=== PATIENT | female | born 1980 | race Caucasian/White ===

== ENCOUNTER 2023-05-09 12:42 | Outpatient (AMB) | payer OTHER, SELFPAY ==
--- NOTE | 2023-05-09 12:44 | AM.OFFWIN_ITS ---
Intake Vital Signs 05/09/23 12:48 BP 120/80 Blood Pressure Location Rt brachial Position Sitting Pulse 74 Pulse Source Pulse Oximeter Pulse Oximetry (%) 99 Oxygen Delivery Method Room Air Intake Visit Reasons: EP; both hands numb Intake Note: Patient here for wrist pain that has radiated to elbows and hands are numb/burning sensation for a while now. Patient Tobacco Use Status: Former Tobacco user Allergies sulfamethoxazole [From Bactrim] Allergy (Severe, Verified 05/09/23 12:47) Hives trimethoprim [From Bactrim] Allergy (Severe, Verified 05/09/23 12:47) Hives Sulfa (Sulfonamide Antibiotics) Allergy (Unknown, Verified 05/09/23 12:47) unsure Do you need a note to return to daycare/school/sports/work: No HPI HPI Comments History of Present Illness Details 42-year-old female who presents for bilateral numbness and tingling of her hands. Patient states that for off and on for several months now she has been experiencing occasional bilateral tingling in wood sensations of her hands bilaterally that is productive the elbows. Pain initially if 1st seemed worse with usage in she believed is an overuse injury but now she has occasional episodes of pain in the past. She has tried splinting as well as NSAIDs which helps occasionally. The pain is described as a burning sensation. She denies any acute weakness but has broken several glasses. Denies any headaches vision changes bladder or bowel symptoms fever chest pain shortness of breath new rashes but does have exposure to ticks. [facility] Family History (Reviewed 11/03/22 @ 11:40 by Charanjit Nava, [facility]) Maternal Aunt Substance use disorder Mental health disorder Paternal Uncle Mental health disorder Maternal Uncle Substance use disorder Mental health disorder Sister Substance use disorder Mental health disorder Brother Substance use disorder Mental health disorder Paternal Aunt Substance use disorder Mental health disorder Maternal Grandmother Mental health disorder Mother Mental health disorder Social History Housing: House Patient Tobacco Use Status: Former Tobacco user Years Smoked: quit 16 years ago e-Cigarette/Vaping Use: Never Used Second Hand Smoke Exposure: No service: No Current occupational status: unemployed Cognitive needs: No Hearing needs: No Vision needs: No Review of Systems Const All systems reviewed & are unremarkable except as noted in HPI and below Denies fever(s), Denies headache(s) and Denies weakness Eyes Reports no additional complaints ENT Reports no additional complaints and Denies headache(s) Card Reports no additional complaints, Denies chest pain, Denies leg edema and Denies dyspnea Resp Denies cough and Denies dyspnea GI Denies abdominal pain, Denies nausea and Denies vomiting Denies urinary frequency and Denies dysuria Musc Reports no additional complaints and Reports numbness Neuro Denies headache(s), Reports numbness, Reports paresthesias and Denies weakness Psych Reports no additional complaints Endo Reports no additional complaints Physical Exam Vital Signs: Last Vital Signs Pulse 74 05/09/23 12:48 BP 120/80 05/09/23 12:48 Pulse Ox 99 05/09/23 12:48 Oxygen Delivery Method Room Air 05/09/23 12:48 Const General: cooperative, no acute distress and alert Orientation/consciousness: patient oriented x3 Limitations: no limitations HEENT Head: Yes normal to inspection Ears: hearing grossly normal bilaterally and external ears normal General nose exam: Normal external nose present Eyes General: appearance normal, both eyes and all related structures Neck Neck: Yes normal visual inspection Chest Chest palpation & inspection: normal inspection of the chest Resp Effort & Inspection: normal respiratory effort, able to speak in complete sentences and no audible wheezes Auscultation: clear to auscultation bilaterally Cardio Rate: regular rate Rhythm: regular rhythm GI Inspection: Yes normal to inspection Palpation (GI): Soft to palpation and nontender Skin General skin exam: no rashes or lesions noted Neuro Other: NEURO PHYSCIAL EXAM Alert and oriented to person, place, time speech: clear, fluent CN II: visual acuity grossly intact b/l, PERRLA CN III, IV, : EOMI CN V: facial sensation grossly intact to light touch b/l CN VII: symmetric facial movement b/l, no facial droop CN VIII: hearing intact to finger rub b/l, no nystagmus CN IX, X: uvula midline CN XI: 5/5 strength with SCM and trapezius b/l CN XII: midline tongue protrusion, no atrophy or fasciculations motor: 5/5 muscle strength of UE/LE b/l, no pronator drift sensory: grossly intact b/l to light touch coordination: No dysmetria or dysdiadochokinesia with rapid alternating movement and finger to nose testing reflexes: General: patient oriented x3 Psych Appearance: grossly normal Mental Status: mental status grossly normal Speech and movement: Normal speech and movement present Affect: normal affect Attitude: cooperative Thought process: Normal thought process present Thought content: Normal thought content present Assessment & Plan Assessment & Plan (1) Neuropathy: Code(s): G62.9 - Polyneuropathy, unspecified Plan 42-year-old female who presents for bilateral numbness and tingling of her hands. VSS. Exam patient was informed oriented no acute distress exam is otherwise unremarkable note above. Neuro exam grossly intact. Given patient's presentation symptoms of consideration is overuse injury versus radiculopathy secondary to patient's history of cervical spinal issues versus new onset polyneuropathy versus Lyme. At this time given chronic nature would recommend patient follow-up with Neurology outpatient will place referral. In addition will trial for day course of steroids if symptoms are not secondary to radiculopathy inflammation. Will send patient for lab studies. Will offer s trict return precautions. Discharge instructions, follow up and treatment are discussed with patient in my usual fashion. Alternatives in treatment are also discussed. The patient will return for worsening symptoms or as needed. Advised that any labs/imaging ordered will be followed up on and contact made if further treatment needed. Counseled that patient's condition may require further evaluation and/or treatment. Symptoms of concern for worsening disorder discussed in detail in my customary manner. Patient does verbalize understanding of the plan, there are no apparent barriers to communication. The patient is given the opportunity to ask questions and have them answered to his/her satisfaction Orders: Orders Lyme IgG/IgM w/reflex to WB Today G62.9 - Polyneuropathy, unspecified Referrals Neurology Referral G62.9 - Polyneuropathy, unspecified Medications: New prednisone 40 mg (2 x 20 mg) PO DAILY 4 days 8 tabs 0RF Patient Instructions: Your seen evaluated in urgent care for your hand numbness and tingling of her hands. At this time unclear include cause of your symptoms. You have prescribe short course of steroids to treat inflammation. Recommend Tylenol NSAIDs rest in splinting at night. In addition a referral to Neurology has been made. Lyme studies were ordered please proceed to the lab. If experiencing no worsening symptoms such as fever, new rashes, swelling of the joints, weakness, lower extremity symptoms, vision changes or headaches please present to the emergency department or return to our clinic. Coding Level of Care Code Est Pt Level 3 (80432) Diagnoses Neuropathy G62.9
[2023-05-09 12:48] VITALS: BP 120/80; PULSE 74; O2SAT 99
== END 2023-05-09 13:26 | disposition home or self-care (01) ==
PROVIDERS: PCP Nurse Practitioner Family; Visit Provider Physician Assistant
DX: G62.9 Polyneuropathy, unspecified (principal)
CPT/HCPCS: 99213

== ENCOUNTER 2023-05-09 13:27 | Outpatient (REF) | payer OTHER, SELFPAY ==
[2023-05-09 16:19] LABS: MANUAL DIFF FLAG NO
[2023-05-09 16:32] LABS: Basophils Absolute Auto 0.1 X10*3/uL (0.0-0.2); Basophils Percent Auto 0.8 % (0-2); Eosinophils Absolute Auto 0.1 X10*3/uL (0.0-0.4); Hematocrit 38.4 % (37.0-47.0); Hemoglobin 12.5 g/dl (12.0-16.0); Imm Gran Abs Auto 0.02 X10*3/uL (0.00-0.03); Imm Gran Pct Auto 0.3 % (0.0-0.4); Lymphocytes Absolute Auto 1.8 X10*3/uL (1.2-4.9); Lymphocytes Percent Auto 30.6 % (20-40); Mean Corpuscular HGB Conc 32.6 g/dl (31.0-35.0); Mean Corpuscular Hemoglobin 28.1 pg (27.0-33.0); Mean Corpuscular Volume 86.3 fL (80.0-98.0); Mean Platelet Volume 11.5 fL (9.4-12.3); Monocytes Absolute Auto 0.3 X10*3/uL (0.1-1.2); Monocytes Percent Auto 5.7 % (2-11); Neutrophils Absolute Auto 3.6 x10*3/uL (2.0-8.3); Neutrophils Percent Auto 61.6 % (45-73); Platelet Count 268 X10*3/uL (160-400); Red Blood Count 4.45 X10*6/uL (4.20-5.50); Red Cell Distribution Width 12.9 % (11.0-16.0); White Blood Count 5.9 X10*3/uL (4.8-10.8)
[2023-05-09 16:33] LABS: Appearance Urine Clear; Color Urine Yellow; Glucose Urine UA Negative (Negative); Leukocyte Esterase Urine Negative (Negative); Nitrite Urine Negative (Negative); Specific Gravity - Urine 1.015 (1.005-1.025); Urine Blood Negative (Negative); Urine Ketones Negative (Negative); Urine Protein Negative (Neg-Trace)
[2023-05-09 16:58] LABS: Alanine Aminotransferase 18 U/L (0-31); Albumin Level 4.6 g/dL (3.5-5.0); Alkaline Phosphatase 51 U/L (39-117); Anion Gap 14 (12-20); Aspartate Amino Transferase 19 U/L (5-31); Bilirubin Total 0.5 mg/dL (0.0-1.0); Blood Urea Nitrogen 12 mg/dL (9-16); Calcium 10.4 mg/dL (8.4-10.2); Carbon Dioxide 25 mmol/L (22-29); Chloride 107 mmol/L (96-108); Cholesterol 173 mg/dL; Estimated Glomerular Filt Rate > 60; Glucose Fasting 92 mg/dL (60-99); HDL Cholesterol 65 mg/dL; LDL Cholesterol Calculated 90 mg/dl; Potassium 3.7 mmol/L (3.3-5.1); Sodium 142 mmol/L (135-145); Total Protein 7.3 g/dL (6.5-8.0); Triglycerides 93 mg/dL
[2023-05-09 17:03] LABS: TSH reflex Free T4 1.02 uIU/mL (0.32-4.0)
[2023-05-12 22:04] LABS: Lyme Abs Screen <0.90 index
== END 2023-05-09 13:28 | disposition home or self-care (01) ==
LOC: HO.HMGCLDS 13:27
PROVIDERS: Absent Provider Physician Assistant; PCP Nurse Practitioner Family; Visit Provider Nurse Practitioner Family
DX: Z00.00 Encounter for general adult medical examination without abnormal findings (principal); G62.9 Polyneuropathy, unspecified
CPT/HCPCS: 36415; 80053; 80061; 81003; 84443; 85025; 86617; 86618

== ENCOUNTER 2023-05-15 11:09 | Outpatient (REF) | payer OTHER, SELFPAY ==
[2023-05-15 15:11] LABS: Vitamin D 25-OH Total 42.1 ng/mL (>30)
[2023-05-17 23:33] LABS: PTHI 56 pg/mL (16-77)
[2023-05-20 12:48] LABS: Calcium, Ionized 5.2 mg/dL (4.7-5.5)
== END 2023-05-15 11:10 | disposition home or self-care (01) ==
LOC: HO.HMGCLDS 11:09
PROVIDERS: PCP Nurse Practitioner Family; Visit Provider Nurse Practitioner Family
DX: E83.52 Hypercalcemia (principal)
CPT/HCPCS: 36415; 82306; 82330; 83970

== ENCOUNTER 2023-06-15 13:16 | Outpatient (AMB) | payer OTHER, SELFPAY ==
--- NOTE | 2023-06-15 13:18 | A.OFFPC_ITS ---
Vital Signs 06/15/23 13:19 Height 5 ft 2 in Weight 108 lb 8 oz BMI 19.8 BP 102/70 Blood Pressure Location Rt brachial Position Sitting Pulse 86 Pulse Source Pulse Oximeter Pulse Oximetry (%) 99 Oxygen Delivery Method Room Air Intake Visit Reasons: Bilateral Arm numbness/tingling Intake Note: pt says this started about 5-6 months ago pt says it has been consistent but did calm down some with ibuprofen ad Tylenol Allergies sulfamethoxazole [From Bactrim] Allergy (Severe, Verified 06/15/23 17:31) Hives trimethoprim [From Bactrim] Allergy (Severe, Verified 06/15/23 17:31) Hives Sulfa (Sulfonamide Antibiotics) Allergy (Unknown, Verified 06/15/23 17:31) unsure Medication List - Last Reconciled 06/15/23 by LUISITO Ellison prednisone 40 mg (2 x 20 mg) PO DAILY 7 days Tobacco use date assessed: 06/15/23 Dental Screening Dental Screen Date: 06/15/23 Did you have a dental visit in the last 12 months?: Yes Did you have a dental problem in the last 6 months where you did not have access to dental care?: No Was dental information given to patient?: Patient has dentist HPI Bilateral Arm numbness/tingling HPI Details Pt c/o bilat hand numbness and tingling. She reports noticing this when using her hands a lot. Pt was seen in the walk-in for this on 05/09 and was given prednisone. She was also tested for lyme which was negative. Pt was referred to neurology and has an appointment in October. She reports some cervical neck pain with radicular symptoms down her upper extremities. Will order cervical spine xr. Will also order EMG/nerve conduction testing and send prednisone. Recommended wrist braces at night. Denies fever, chills, and dizziness. [facility] Family History Maternal Aunt Substance use disorder Mental health disorder Paternal Uncle Mental health disorder Maternal Uncle Substance use disorder Mental health disorder Sister Substance use disorder Mental health disorder Brother Substance use disorder Mental health disorder Paternal Aunt Substance use disorder Mental health disorder Maternal Grandmother Mental health disorder Mother Mental health disorder Social History Housing: House Patient Tobacco Use Status: Former Tobacco user Years Smoked: quit 16 years ago e-Cigarette/Vaping Use: Never Used Second Hand Smoke Exposure: No service: No Current occupational status: unemployed Cognitive needs: No Hearing needs: No Vision needs: No Questionnaire Thrive Questionnaire Date Thrive assessed: 11/03/22 FERNANDO-7 AMB Questionnaire FERNANDO-7 Date FERNANDO - 7 assessed: 11/03/22 Source: Developed by Drs. Ajay Bran, Josette Nayak, Umberto Martell and colleagues, with an educational iman from [employer]. Review of Systems Const Reports as per HPI Physical exam (Primary Care) Vital Signs: Last Vital Signs Pulse 86 06/15/23 13:19 BP 102/70 06/15/23 13:19 Pulse Ox 99 06/15/23 13:19 Oxygen Delivery Method Room Air 06/15/23 13:19 BMI result Body Mass Index 19.8 Tobacco/Smoking Status: Tobacco use Status Tobacco use date assessed 06/15/23 06/15/23 13:24 Patient Tobacco Use Status Former Tobacco user 06/15/23 13:19 e-Cigarette/Vaping Use Never Used 06/15/23 13:19 Thrive Assessment: Date of Thrive Assessment Date Thrive assessed 11/03/22 06/15/23 13:19 Const General: cooperative Orientation/consciousness: patient oriented x3 Resp Effort & Inspection: normal respiratory effort Auscultation: clear to auscultation bilaterally Cardio Rate: regular rate Rhythm: regular rhythm Heart sounds: S1 normal heart sound present and S2 normal heart sound present Neuro General: patient oriented x3 Extrem Other: + phalens test, neg tinels Psych Appearance: grossly normal Mental Status: mental status grossly normal Speech and movement: Normal speech and movement present Affect: normal affect Attitude: cooperative Thought process: Normal thought process present Thought content: Normal thought content present Insight: Good insight present (Psych) Judgement: Good judgement present (Psych) Assessment and Plan Assessment & Plan (1) Numbness and tingling in left arm: Code(s): R20.0 - Anesthesia of skin; R20.2 - Paresthesia of skin Plan: EMG/nerve conduction testing and xr ordered (2) Numbness and tingling of right arm: Code(s): R20.0 - Anesthesia of skin; R20.2 - Paresthesia of skin Plan: EMG/nerve conduction testing and xr ordered (3) Cervical pain (neck): Code(s): M54.2 - Cervicalgia Plan The patient agreed to the use of a medical insurance coding specialist for this encounter. Scribed for LUISITO Heredia by Kristal Galvin medical insurance coding specialist, on 06/15/2023 at 13:40 EST. Orders: Orders NE electromyogram (EMG) Today R20.0 - Anesthesia of skin, R20.2 - Paresthesia of skin NE nerve conduction velocity Today R20.0 - Anesthesia of skin, R20.2 - Paresthesia of skin XR cervical spine 2V Today R20.0 - Anesthesia of skin, R20.2 - Paresthesia of skin Medications: New prednisone 40 mg (2 x 20 mg) PO DAILY 14 tabs 0RF 7 days Coding Level of Care Code Est Pt Level 3 (31462) Diagnoses Numbness and tingling in left arm R20.0; R20.2 Numbness and tingling of right arm R20.0; R20.2 Cervical pain (neck) M54.2
[2023-06-15 13:19] VITALS: BP 102/70; PULSE 86; O2SAT 99; BMI 19.8
== END 2023-06-15 14:16 | disposition home or self-care (01) ==
LOC: HO.HMGC 13:16
PROVIDERS: PCP Nurse Practitioner Family; Visit Provider Nurse Practitioner Family
DX: R20.0 Anesthesia of skin (principal); R20.2 Paresthesia of skin; M54.2 Cervicalgia
CPT/HCPCS: 99213

== ENCOUNTER 2023-06-15 14:02 | Outpatient (REF) | payer OTHER, SELFPAY ==
--- NOTE | ~2023-06-15 | XR_ITS ---
EXAMINATION: XR CERVICAL SPINE CLINICAL INFORMATION: Anesthesia of skin. COMPARISON: None available. TECHNIQUE: Frontal, lateral and odontoid views are obtained. FINDINGS: Vertebral body heights and alignment are normal. The disc spaces are well-maintained. No acute fracture or spondylolisthesis is seen. The posterior elements are intact. There is no prevertebral soft tissue swelling. The dens and C7-T1 interface are normal. A small left carotid atherosclerotic calcification is questioned. XR/XR cervical spine 2V IMPRESSION: Negative examination.
== END 2023-06-15 14:03 | disposition home or self-care (01) ==
LOC: HO.HMGCX 14:02
PROVIDERS: PCP Nurse Practitioner Family; Visit Provider Nurse Practitioner Family
DX: R20.0 Anesthesia of skin (principal); R20.2 Paresthesia of skin
CPT/HCPCS: 72040

== ENCOUNTER 2023-06-30 10:44 | Outpatient (REF) | payer OTHER, SELFPAY ==
--- NOTE | 2023-06-30 10:47 | EMG_ITS ---
Chief complaint: Bilateral hand numbness Reason for referral: Evaluate for Carpal Tunnel Syndrome Referred by: Charanjit Nava NP Procedure done: Bilateral upper extremities NCS Precautions and/or limitations: Patient is afraid of needles. Needle EMG deferred. The limb temperature was monitored continuously and remained between 32-36 degrees C during the performance of the NCS. Nerve Conduction Studies Anti Sensory Summary Table ?Stim Site NR Onset (ms) Norm Onset (ms) Peak (ms) Norm Peak (ms) O-P Amp (?V) Norm O-P Amp Site1 Site2 Delta-0 (ms) Dist (cm) Jeremi (m/s) Norm Jeremi (m/s) Left Median Anti Sensory (2nd Digit) Wrist ? 2.4 3.3 <3.6 105.2 >10 Wrist 2nd Digit 2.4 14.0 58 Right Median Anti Sensory (2nd Digit) Wrist ? 2.4 3.0 <3.6 82.9 >10 Wrist 2nd Digit 2.4 14.0 58 Left Ulnar Anti Sensory (5th Digit) Wrist ? 2.6 3.4 <3.7 98.8 >15.0 Wrist 5th Digit 2.6 14.0 54 Right Ulnar Anti Sensory (5th Digit) Wrist ? 2.3 3.3 <3.7 76.9 >15.0 Wrist 5th Digit 2.3 14.0 61 Motor Summary Table ?Stim Site NR Onset (ms) Norm Onset (ms) O-P Amp (mV) Norm O-P Amp iAmp (mV) Amp (1st) (%) Site1 Site2 Delta-0 (ms) Dist (cm) Jeremi (m/s) Norm Jeremi (m/s) Left Median Motor (Abd Poll Brev) Wrist ? 3.1 <3.9 13.7 >4.5 17.0 100.0 Elbow Wrist 3.1 18.5 60 >45 Elbow ? 6.2 13.9 17.0 101.5 Right Median Motor (Abd Poll Brev) Wrist ? 3.0 <3.9 4.9 >4.5 5.8 100.0 Elbow Wrist 3.1 19.5 63 >45 Elbow ? 6.1 5.5 6.2 112.2 Left Ulnar Motor Run #2 (Abd Dig Minimi) Wrist ? 2.7 <3.0 9.5 >5 11.8 100.0 B Elbow Wrist 2.8 16.5 59 >45 B Elbow ? 5.5 9.6 12.0 101.1 A Elbow B Elbow 1.5 10.0 67 >45 A Elbow ? 7.0 9.7 12.0 102.1 Right Ulnar Motor (Abd Dig Minimi) Wrist ? 2.8 <3.0 10.3 >5 13.0 100.0 B Elbow Wrist 2.7 17.0 63 >45 B Elbow ? 5.5 10.6 13.3 102.9 A Elbow B Elbow 1.4 10.0 71 >45 A Elbow ? 6.9 10.4 13.0 101.0 Comparison Summary Table ?Stim Site NR Peak (ms) Norm Peak (ms) P-T Amp (?V) Site1 Site2 Delta-P (ms) Norm Delta (ms) Left Median/Radial Dig I Comparison (Digit 1 - 10cm) Median ? 2.5 <2.9 100.9 Median Radial 0.1 Radial ? 2.6 <2.8 89.7 Right Median/Radial Dig I Comparison (Digit 1 - 10cm) Median ? 2.5 <2.9 181.3 Median Radial 0.1 Radial ? 2.6 <2.8 12.9 FINDINGS: All motor and sensory nerves tested showed normal latencies, amplitudes and conduction velocities. IMPRESSION: 1. This is a normal NCS. 2. There is no electrodiagnostic evidence for median neuropathy, or ulnar neuropathy, Thank you for your kind referral. Rhonda Jackson MD, RANDY Board Certified, [place] [employer] and [employer] (ABPMR) Board Certified, [place] Board [employer] Electrodiagnostic Medicine (ABEM) [facility]
== END 2023-06-30 10:45 | disposition home or self-care (01) ==
LOC: HO.NEURO 10:44
PROVIDERS: Visit Provider Nurse Practitioner Family
DX: R20.0 Anesthesia of skin (principal); R20.2 Paresthesia of skin
CPT/HCPCS: 95911

== ENCOUNTER → 2023-06-30 10:47 | Outpatient (BNV) | payer OTHER, SELFPAY | PROVIDERS: Visit Provider Physical Medicine & Rehabilitation | DX: R20.0 Anesthesia of skin (principal); R20.2 Paresthesia of skin | CPT/HCPCS: 95911 ==

== ENCOUNTER 2023-11-06 10:34 | Outpatient (AMB) | payer OTHER, SELFPAY ==
--- NOTE | 2023-11-06 10:36 | MHC.PC.OV ---
Vital Signs 11/06/23 10:39 Height 5 ft 2 in Weight 108 lb BMI 19.8 BP 108/68 Blood Pressure Location Rt brachial Position Sitting Pulse 70 Pulse Source Pulse Oximeter Pulse Oximetry (%) 100 Oxygen Delivery Method Room Air Intake Visit Reasons: Annual PE Intake Note: Patient here for physical exam. last mammo: has not had one done yet. last pap: 08/2023 at [facility]. Allergies sulfamethoxazole [From Bactrim] Allergy (Severe, Verified 11/06/23 10:41) Hives trimethoprim [From Bactrim] Allergy (Severe, Verified 11/06/23 10:41) Hives Sulfa (Sulfonamide Antibiotics) Allergy (Unknown, Verified 11/06/23 10:41) unsure Medication List - Last Reconciled 11/06/23 by LUISITO Ellison No Known Home Meds Tobacco use date assessed: 11/06/23 Dental Screening Dental Screen Date: 11/06/23 Did you have a dental visit in the last 12 months?: Yes Did you have a dental problem in the last 6 months where you did not have access to dental care?: No Was dental information given to patient?: Patient has dentist HPI Annual PE HPI Details Pt is here for a PE. Will order labs. Pt has not had a mammogram because she is still . Pt c/o cervical neck pain. She has tried PT in the past, with no relief, it made it worse .. Pt has gone to massage therapy in the past, which has helped, will refer. If the massage therapy does not help, WILL ORDER A MRI. 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 PFSH Family History Maternal Aunt Substance use disorder Mental health disorder Paternal Uncle Mental health disorder Maternal Uncle Substance use disorder Mental health disorder Sister Substance use disorder Mental health disorder Brother Substance use disorder Mental health disorder Paternal Aunt Substance use disorder Mental health disorder Maternal Grandmother Mental health disorder Mother Mental health disorder Social History Housing: House Patient Tobacco Use Status: Former Tobacco user Years Smoked: quit 16 years ago e-Cigarette/Vaping Use: Never Used Second Hand Smoke Exposure: No service: No Current occupational status: unemployed Cognitive needs: No Hearing needs: No Vision needs: No Questionnaire PHQ-9 Over the last 2 weeks, how often have you been bothered by any of the following problems? 1. Little interest or pleasure in doing things: not at all 2. Feeling down, depressed, or hopeless: not at all 3. Trouble falling or staying asleep, or sleeping too much: several days 4. Feeling tired or having little energy: not at all 5. Poor appetite or overeating: not at all 6. Feeling bad about yourself - or that you are a failure or have let yourself or your family down: not at all 7. Trouble concentrating on things, such as reading the newspaper or watching television: several days 8. Moving or speaking so slowly that other people could have noticed. Or the opposite - being so fidgety or restless that you have been moving around a lot more than usual: more than half the days 9. Thoughts that you would be better off or of hurting yourself in some way: not at all Total score: 4 Depression Screening Interpretation: Negative Depression Screening Done: Yes 03118 - PHQ-9 Billing: Yes Source: Developed by Drs. Ajay Bran, Josette Naayk, Umberto Martell and colleagues, with an educational iman from [employer]. Thrive Questionnaire Date Thrive assessed: 11/06/23 I am a: Patient What is your living situation today?: I have a steady place to live Within the past 12 months, did the food you bought not last and you didn't have the money to get more?: Never true Within the past 12 months, did you worry whether your food would run out before you got money to buy more?: Never true Do you have trouble paying for medicines?: No Do you have trouble getting transportation to medical appointments?: No Do you have trouble paying your heating and electricity bill?: No Do you have trouble taking care of your child, family member or friend?: No Do you have trouble with day-to-day activities such as bathing, preparing meals, shopping, managing finances, etc.?: No Are you currently unemployed and looking for a job?: No Are you interested in more education?: No Currently or been in a relationship where the following occur: no concerns reported AUDIT C Alcohol Use Questionnaire (AUDIT-C) 1. How often do you have a drink containing alcohol?: Never 3. How often do you have six or more drinks on one occasion?: Never Total Score: 0 Score Reviewed/Action Taken: No FERNANDO-7 AMB Questionnaire FERNANDO-7 Date FERNANDO - 7 assessed: 11/06/23 Feeling nervous, anxious, or on edge: 1 = Several days Not being able to stop or control worryin = Not at all Worrying too much about different things: 1 = Several days Trouble relaxin = Several days Being so restless that it is hard to sit still: 0 = Not at all Becoming easily annoyed or irritable: 1 = Several days Feeling afraid as if something awful might happen: 0 = Not at all Total FERNANDO-7 score (0-4 normal; 5-9 mild; 10-14 moderate; 15-21 severe): 4 Source: Developed by Drs. Ajay Bran, Josette Nayak, Umberto Martell and colleagues, with an educational iman from [employer]. FERNANDO-7 Assessment Billing FERNANDO-7 Assessment Tool: FERNANDO-7 Assessment 63297 Review of Systems Const Denies chills and Denies fever(s) Eyes Denies blurry vision ENT Denies vertigo, Denies dizziness and Denies sore throat Card Denies chest pain at rest, Denies chest pain with activity, Denies diaphoresis, Denies dyspnea and Denies dyspnea on exertion Resp Denies cough, Denies dyspnea, Denies dyspnea on exertion and Denies wheezing GI Denies abdominal pain, Denies melena, Denies hematochezia, Denies constipation, Denies diarrhea and Denies loose stools Denies hematuria Musc Denies numbness and Denies tingling Skin/Breast Denies lesions Neuro Denies vertigo, Denies dizziness, Denies numbness and Denies tingling Psych Denies anxiety, Denies depression, Denies homicidal ideation, Denies suicidal ideation and Denies other (substance abuse) Aller/Immun Denies wheezing Physical exam (Primary Care) Vital Signs: Last Vital Signs Pulse 70 11/06/23 10:39 BP 108/68 11/06/23 10:39 Pulse Ox 100 11/06/23 10:39 Oxygen Delivery Method Room Air 11/06/23 10:39 BMI result Body Mass Index 19.8 Tobacco/Smoking Status: Tobacco use Status Tobacco use date assessed 11/06/23 11/06/23 10:43 Patient Tobacco Use Status Former Tobacco user 11/06/23 10:41 e-Cigarette/Vaping Use Never Used 11/06/23 10:41 Depression Screening Interpretation: Negative Thrive Assessment: Date of Thrive Assessment Date Thrive assessed 11/03/22 11/06/23 10:41 Currently or been in a relationship where the following occur: no concerns reported Const General: cooperative Nutritional Appearance: well nourished Orientation/consciousness: patient oriented x3 HENMT Head: Yes normal to inspection, Yes normocephalic and Yes atraumatic Ears: TM's normal bilaterally Eyes General: appearance normal, both eyes and all related structures Alignment and Position: alignment normal and position normal Neck Neck: Yes normal visual inspection and Yes no lymphadenopathy Thyroid: Thyroid normal Resp Effort & Inspection: normal respiratory effort Auscultation: clear to auscultation bilaterally Cardio Rate: regular rate Rhythm: regular rhythm Heart sounds: S1 normal heart sound present, S2 normal heart sound present and Murmur heart sound present systolic GI Palpation (GI): Soft to palpation and nontender Auscultation: normal bowel sounds Skin Rashes: no rashes Neuro General: patient oriented x3, moves all extremities, no focal motor deficits and deep tendon reflexes 2+ bilaterally Romberg Test: Negative Psych Appearance: grossly normal Mental Status: mental status grossly normal Speech and movement: Normal speech and movement present Affect: normal affect Attitude: cooperative Thought process: Normal thought process present Thought content: Normal thought content present Insight: Good insight present (Psych) Judgement: Good judgement present (Psych) Assessment and Plan Assessment & Plan (1) Physical exam: Code(s): Z00.00 - Encounter for general adult medical examination without abnormal findings Plan: Labs ordered (2) Cervical pain (neck): Code(s): M54.2 - Cervicalgia Plan: Referred to massage therapy Plan The patient agreed to the use of a medical record technician for this encounter. Scribed for LUISITO Heredia by Kristal Galvin medical record technician, on 11/06/2023 at 10:55 EST. Orders: Orders Comprehensive [place]. Panel Fast Today Z00.00 - Encounter for general adult medical examination without abnormal findings TSH reflex Free T4 Today Z00.00 - Encounter for general adult medical examination without abnormal findings Complete Blood Count Auto Diff Today Z00.00 - Encounter for general adult medical examination without abnormal findings Lipid Panel Today Z00.00 - Encounter for general adult medical examination without abnormal findings UA CC w/rflx Micro + Cult Today Z00.00 - Encounter for general adult medical examination without abnormal findings Referrals Massage Therapy Referral M54.2 - Cervicalgia Coding Level of Care Code Est Pt Prev Care 40-64y(47723) Diagnoses Physical exam Z00.00 Cervical pain (neck) M54.2 Additional Codes FERNANDO-7 Assessment Billing - FERNANDO-7 Assessment Tool: FERNANDO-7 Assessment 94289 ([id number])
[2023-11-06 10:39] VITALS: BP 108/68; PULSE 70; O2SAT 100; BMI 19.8
== END 2023-11-06 11:11 | disposition home or self-care (01) ==
LOC: HO.HMGC 10:34
PROVIDERS: PCP Nurse Practitioner Family; Visit Provider Nurse Practitioner Family
DX: Z00.00 Encounter for general adult medical examination without abnormal findings (principal); M54.2 Cervicalgia
CPT/HCPCS: 99396

== ENCOUNTER 2023-11-13 10:56 | Outpatient (AMB) | payer OTHER, SELFPAY ==
--- NOTE | 2023-11-13 11:36 | A.OFFVIS_ITS ---
Intake Vital Signs 11/13/23 11:39 Height 4 ft 10 in Weight 109 lb 2 oz BMI 22.8 BP 122/70 Blood Pressure Location Rt brachial Position Sitting Respiration 16 Pulse 59 Pulse Source Pulse Oximeter Pulse Oximetry (%) 99 Oxygen Delivery Method Room Air Intake Visit Reasons: INP-Polyneuropathy - LVM Intake Note: Pt presents to the office for new pt evaluation for polyneuropathy. Insurance Loss Assessor Required: No Allergies sulfamethoxazole [From Bactrim] Allergy (Severe, Verified 11/13/23 11:38) Hives trimethoprim [From Bactrim] Allergy (Severe, Verified 11/13/23 11:38) Hives Sulfa (Sulfonamide Antibiotics) Allergy (Unknown, Verified 11/13/23 11:38) unsure Medication List - Last Reconciled 11/13/23 by Jeannine Robertson MD ibuprofen 600 mg PO Q8H PRN HPI HPI Comments History of Present Illness Details 43y/o female comes for evaluation of num bness and tingling in holly hands and sometimes elbows. It started about 4-5 years agow hens he was painting her childrens bedroom . It lasted about 1 day and resolved. In 2019 she was sowing masks a lot and she started having similar symptoms for few weeks but when she stopped sewing the symptoms resolved.Last year she started having numbness and tingling and it has been persistent. SHe also reports wrist pain. she used to wake up in the middle of the night. she sleeps with a wrist brace now and does not wake up in the middle of the night with symptoms. He rC spine x ray was normal she also reports neck pain for over 15 years- but denies any shooting pain In Aug 2022 she roller skated with her son and when her son fell and pulled her arm and her neck pain worsened. she takes ibuprofen and it helps, The pain can radiate to the back of ehr head. she uses heating pad and TENS unit . she did not want to do PT because in the past her pain worsened. EMG of Ue was normal In 2018 when she was lifting weights she hurt herself in her right shoulder region and was told she has a muscle tear. PT did not help - since thens he has been having pain [facility] Medical History (Updated 11/13/23 @ 12:00 by Jeannine Robertson MD) Right anterior shoulder pain Surgical History H/O section Hx of cholecystectomy History of appendectomy Family History Maternal Aunt Substance use disorder Mental health disorder Paternal Uncle Mental health disorder Maternal Uncle Substance use disorder Mental health disorder Sister Substance use disorder Mental health disorder Brother Substance use disorder Mental health disorder Paternal Aunt Substance use disorder Mental health disorder Maternal Grandmother Mental health disorder Mother Mental health disorder Social History Housing: House Patient Tobacco Use Status: Former Tobacco user Years Smoked: quit 16 years ago e-Cigarette/Vaping Use: Never Used Second Hand Smoke Exposure: No service: No Current occupational status: unemployed Cognitive needs: No Hearing needs: No Vision needs: No Physical Exam Vital Signs: Last Vital Signs Pulse 59 11/13/23 11:39 Resp 16 11/13/23 11:39 BP 122/70 11/13/23 11:39 Pulse Ox 99 11/13/23 11:39 Oxygen Delivery Method Room Air 11/13/23 11:39 BMI result Body Mass Index 22.8 Const Orientation/consciousness: patient oriented x3 Eyes Pupils: Equal, round and reactive pupils present Neuro Other: Tenderness in right levator trapezius , splenius, pec major , lattismus , scapular region No dystonia General: patient oriented x3, gait normal, tone normal, moves all extremities and no focal motor deficits Cranial nerves: Yes Facial sensation intact/muscles of mastication intact, Yes Equal, round and reactive pupils present, Yes Bilaterally intact EOM present, Yes Nystagmus not present, Yes Normal facial strength present and Yes Midline tongue present Cognition (Neuro): normal cognition Gait exam (Neuro): Normal gait present Motor exam (neuro): 5/5 motor strength present throughout and Normal motor musc le tone present throughout Deep tendon reflexes (DTR's): Right triceps reflex intensity grade: 2+, Left triceps reflex intensity grade: 2+, Rt Biceps (C5, C6): 2+, Left biceps reflex intensity grade: 2+, Right brachioradialis reflex intensity grade: 2+, Left brachioradialis reflex intensity grade: 2+, Right patellar reflex intensity grade: 2+ and Left patellar reflex intensity grade: 2+ Coordination: [id number] test normal Assessment & Plan Assessment & Plan (1) Right anterior shoulder pain: Comment: ? complex regional pain syndrome Code(s): M25.511 - Pain in right shoulder (2) Numbness and tingling of right arm: Code(s): R20.0 - Anesthesia of skin; R20.2 - Paresthesia of skin (3) Numbness and tingling in left arm: Code(s): R20.0 - Anesthesia of skin; R20.2 - Paresthesia of skin (4) Cervical pain (neck): Code(s): M54.2 - Cervicalgia Plan Reviewed EMG and C spine X ray I will trial her on gabapentin 100mg qhs discussed about the possibility of chronic pain syndrome - suggested pain clinic she declined for now. suggested ice packs to alternate with heat Medications: New gabapentin 100 mg PO BEDTIME 30 caps 6RF Coding Level of Care Code New Pt Level 4 (41002) Diagnoses Right anterior shoulder pain M25.511 Numbness and tingling of right arm R20.0; R20.2 Numbness and tingling in left arm R20.0; R20.2 Cervical pain (neck) M54.2
[2023-11-13 11:39] VITALS: BP 122/70; PULSE 59; RESP 16; O2SAT 99; BMI 22.8
== END 2023-11-13 12:09 | disposition home or self-care (01) ==
PROVIDERS: PCP Nurse Practitioner Family; Visit Provider Psychiatry & Neurology Neurology
DX: M25.511 Pain in right shoulder (principal); R20.0 Anesthesia of skin; R20.2 Paresthesia of skin; M54.2 Cervicalgia
CPT/HCPCS: 99204

== ENCOUNTER → 2023-11-13 10:56 | Outpatient (BNVA) | payer OTHER, SELFPAY | PROVIDERS: PCP Nurse Practitioner Family; Visit Provider Psychiatry & Neurology Neurology | DX: M25.511 Pain in right shoulder (principal); M54.2 Cervicalgia; R20.0 Anesthesia of skin; R20.2 Paresthesia of skin | CPT/HCPCS: 99202 ==

== ENCOUNTER 2024-03-06 10:00 | Outpatient (AMB) | payer OTHER, SELFPAY ==
--- NOTE | 2024-03-06 10:01 | MHC.PC.OV ---
Vital Signs 03/06/24 10:04 Height 4 ft 10 in Weight 109 lb BMI 22.8 BP 110/72 Blood Pressure Location Rt brachial Position Sitting Pulse 67 Pulse Source Pulse Oximeter Pulse Oximetry (%) 100 Oxygen Delivery Method Room Air Intake Visit Reasons: 4 month follow up Intake Note: Patient here to follow up on cervical neck pain. pt states it has not changed much. Allergies sulfamethoxazole [From Bactrim] Allergy (Severe, Verified 03/06/24 10:04) Hives trimethoprim [From Bactrim] Allergy (Severe, Verified 03/06/24 10:04) Hives Sulfa (Sulfonamide Antibiotics) Allergy (Unknown, Verified 03/06/24 10:04) unsure Medication List - Last Reconciled 03/06/24 by LUISITO Ellison ibuprofen 600 mg PO Q8H PRN Tobacco use date assessed: 11/06/23 Dental Screening Dental Screen Date: 11/06/23 HPI 4 month follow up HPI Details Pt c/o ongoing cervical neck pain. She reports radicular symptoms down her upper extremities. Cervical XR was negative. EMG testing showed: this is a normal NCS. There is no electrodiagnostic evidence for median neuropathy, or ulnar neuropathy. Pt has tried medication and home exercises with no relief/failed conservative treatment. Will order MRI. Denies fever, chills, and dizziness. [facility] Medical History Right anterior shoulder pain Surgical History H/O section Hx of cholecystectomy History of appendectomy Family History Maternal Aunt Substance use disorder Mental health disorder Paternal Uncle Mental health disorder Maternal Uncle Substance use disorder Mental health disorder Sister Substance use disorder Mental health disorder Brother Substance use disorder Mental health disorder Paternal Aunt Substance use disorder Mental health disorder Maternal Grandmother Mental health disorder Mother Mental health disorder Social History Housing: House Patient Tobacco Use Status: Former Tobacco user Years Smoked: quit 16 years ago e-Cigarette/Vaping Use: Never Used Second Hand Smoke Exposure: No service: No Current occupational status: unemployed Cognitive needs: No Hearing needs: No Vision needs: No Questionnaire Thrive Questionnaire Date Thrive assessed: 11/06/23 FERNANDO-7 AMB Questionnaire FERNANDO-7 Date FERNANDO - 7 assessed: 11/06/23 Source: Developed by Drs. Ajay Bran, Josette Nayak, Umberto Martell and colleagues, with an educational iman from [employer]. Review of Systems Const Reports as per HPI Physical exam (Primary Care) Vital Signs: Last Vital Signs Pulse 67 03/06/24 10:04 BP 110/72 03/06/24 10:04 Pulse Ox 100 03/06/24 10:04 Oxygen Delivery Method Room Air 03/06/24 10:04 BMI result Body Mass Index 22.8 Tobacco/Smoking Status: Tobacco use Status Tobacco use date assessed 11/06/23 03/06/24 10:04 Patient Tobacco Use Status Former Tobacco user 03/06/24 10:04 e-Cigarette/Vaping Use Never Used 03/06/24 10:04 Thrive Assessment: Date of Thrive Assessment Date Thrive assessed 11/06/23 03/06/24 10:04 Const General: cooperative Orientation/consciousness: patient oriented x3 Resp Effort & Inspection: normal respiratory effort Auscultation: clear to auscultation bilaterally Cardio Rate: regular rate Rhythm: regular rhythm Heart sounds: S1 normal heart sound present and S2 normal heart sound present Back/Spine/Pelvis Other: with neck flexion and turning head side to side neck pain exacerbated with slight radicular symptoms down BUE Neuro General: patient oriented x3 Psych Appearance: grossly normal Mental Status: mental status grossly normal Speech and movement: Normal speech and movement present Affect: normal affect Attitude: cooperative Thought process: Normal thought process present Thought content: Normal thought content present Insight: Good insight present (Psych) Judgement: Good judgement present (Psych) Assessment and Plan Assessment & Plan (1) Numbness and tingling of right arm: Code(s): R20.0 - Anesthesia of skin; R20.2 - Paresthesia of skin Plan: MRI ordered (2) Numbness and tingling in left arm: Code(s): R20.0 - Anesthesia of skin; R20.2 - Paresthesia of skin Plan: MRI ordered (3) Cervical pain (neck): Code(s): M54.2 - Cervicalgia Plan: failed conservative treatment, will order a MRI Plan The patient agreed to the use of a medical practice manager for this encounter. Scribed for ANA Heredia- by Kristal Galvin medical practice manager, on 03/06/2024 at 10:15 EST. Orders: Orders Complete Blood Count Auto Diff Today R20.0 - Anesthesia of skin, R20.2 - Paresthesia of skin Vitamin B6 Today R20.0 - Anesthesia of skin, R20.2 - Paresthesia of skin MR cervical spine wo con Today M54.2 - Cervicalgia, R20.0 - Anesthesia of skin, R20.2 - Paresthesia of skin Comprehensive Met. Panel Today R20.0 - Anesthesia of skin, R20.2 - Paresthesia of skin Vitamin B12 and Folate Today R20.0 - Anesthesia of skin, R20.2 - Paresthesia of skin Coding Level of Care Code Est Pt Level 3 (03537) Diagnoses Numbness and tingling of right arm R20.0; R20.2 Numbness and tingling in left arm R20.0; R20.2 Cervical pain (neck) M54.2
[2024-03-06 10:04] VITALS: BP 110/72; PULSE 67; O2SAT 100; BMI 22.8
== END 2024-03-06 11:29 | disposition home or self-care (01) ==
PROVIDERS: PCP Nurse Practitioner Family; Visit Provider Nurse Practitioner Family
DX: R20.0 Anesthesia of skin (principal); R20.2 Paresthesia of skin; M54.2 Cervicalgia
CPT/HCPCS: 99213

== ENCOUNTER 2024-03-13 10:40 | Outpatient (AMB) | payer OTHER, SELFPAY ==
--- NOTE | 2024-03-13 10:45 | A.OFFVIS_ITS ---
Vital Signs 03/13/24 10:46 Height 4 ft 10 in Weight 109 lb BMI 22.8 BP 140/82 H Blood Pressure Location Rt brachial Position Sitting Respiration 16 Pulse 77 Pulse Source Pulse Oximeter Pulse Oximetry (%) 100 Oxygen Delivery Method Room Air Intake Visit Reasons: Follow up - LVM w/add Intake Note: Pt presents for 4 month follow up for neck pain. Operations Clerk Required: No Allergies sulfamethoxazole [From Bactrim] Allergy (Severe, Verified 03/13/24 10:46) Hives trimethoprim [From Bactrim] Allergy (Severe, Verified 03/13/24 10:46) Hives Sulfa (Sulfonamide Antibiotics) Allergy (Unknown, Verified 03/13/24 10:46) unsure Medication List - Last Reconciled 03/13/24 by Jeannine Robertson MD ibuprofen 600 mg PO Q8H PRN HPI Comments Details: 43y/o female comes for follow up of numbness and tingling in holly hands and sometimes elbows. she did not like gabapentin so she stopped. C spine X ray was normal EMG holly UE was normal. History form last visit- - It started about 4-5 years ago when s he was painting her childrens bedroom . It lasted about 1 day and resolved. In 2019 she was sowing masks a lot and she started having similar symptoms for few weeks but when she stopped sewing the symptoms resolved.Last year she started having numbness and tingling and it has been persistent. SHe also reports wrist pain. she used to wake up in the middle of the night. she sleeps with a wrist brace now and does not wake up in the middle of the night with symptoms. He rC spine x ray was normal she also reports neck pain for over 15 years- but denies any shooting pain In Aug 2022 she roller skated with her son and when her son fell and pulled her arm and her neck pain worsened. she takes ibuprofen and it helps, The pain can radiate to the back of ehr head. she uses heating pad and TENS unit . she did not want to do PT because in the past her pain worsened. EMG of Ue was normal In 2018 when she was lifting weights she hurt herself in her right shoulder re gion and was told she has a muscle tear. PT did not help - since thens he has been having pain [facility] Medical History (Reviewed 03/06/24 @ 10:20 by Charanjit Nava, [facility]) Right anterior shoulder pain Surgical History H/O section Hx of cholecystectomy History of appendectomy Family History Maternal Aunt Substance use disorder Mental health disorder Paternal Uncle Mental health disorder Maternal Uncle Substance use disorder Mental health disorder Sister Substance use disorder Mental health disorder Brother Substance use disorder Mental health disorder Paternal Aunt Substance use disorder Mental health disorder Maternal Grandmother Mental health disorder Mother Mental health disorder Social History Housing: House Patient Tobacco Use Status: Former Tobacco user Years Smoked: quit 16 years ago e-Cigarette/Vaping Use: Never Used Second Hand Smoke Exposure: No service: No Current occupational status: unemployed Cognitive needs: No Hearing needs: No Vision needs: No Physical Exam Vital Signs: Last Vital Signs Pulse 77 03/13/24 10:46 Resp 16 03/13/24 10:46 BP 140/82 H 03/13/24 10:46 Pulse Ox 100 03/13/24 10:46 Oxygen Delivery Method Room Air 03/13/24 10:46 BMI result Body Mass Index 22.8 Assessment & Plan Assessment & Plan (1) Right anterior shoulder pain: Comment: ? complex regional pain syndrome Code(s): M25.511 - Pain in right shoulder Category: Medical (2) Numbness and tingling of right arm: Code(s): R20.0 - Anesthesia of skin; R20.2 - Paresthesia of skin Category: Medical (3) Numbness and tingling in left arm: Code(s): R20.0 - Anesthesia of skin; R20.2 - Paresthesia of skin Category: Medical (4) Cervical pain (neck): Code(s): M54.2 - Cervicalgia Category: Medical Plan Reviewed EMG and C spine X ray discussed about the possibility of chronic pain syndrome - suggested pain clinic - she is hesitant but agrees. suggested ice packs to alternate with heat Orders: Referrals Pain Management Referral M25.511 - Pain in right shoulder Coding Level of Care Code Est Pt Level 3 (24949) Diagnoses Right anterior shoulder pain M25.511 Numbness and tingling of right arm R20.0; R20.2 Numbness and tingling in left arm R20.0; R20.2 Cervical pain (neck) M54.2
[2024-03-13 10:46] VITALS: BP 140/82; PULSE 77; RESP 16; O2SAT 100; BMI 22.8
== END 2024-03-13 11:41 | disposition home or self-care (01) ==
PROVIDERS: PCP Nurse Practitioner Family; Visit Provider Psychiatry & Neurology Neurology
DX: M25.511 Pain in right shoulder (principal); R20.0 Anesthesia of skin; R20.2 Paresthesia of skin; M54.2 Cervicalgia
CPT/HCPCS: 99213

== ENCOUNTER → 2024-03-13 10:40 | Outpatient (BNVA) | payer OTHER, SELFPAY | PROVIDERS: PCP Nurse Practitioner Family; Visit Provider Psychiatry & Neurology Neurology | DX: M25.511 Pain in right shoulder (principal); M54.2 Cervicalgia; R20.0 Anesthesia of skin; R20.2 Paresthesia of skin | CPT/HCPCS: 99212 ==

== ENCOUNTER 2024-04-11 10:09 | Outpatient (AMB) | payer OTHER, SELFPAY ==
--- NOTE | 2024-04-11 10:25 | MHC.OFFVIS ---
Vital Signs 04/11/24 10:54 Height 4 ft 10 in Weight 106 lb 6 oz BMI 22.2 BP 143/87 H Blood Pressure Location Lt brachial Position Sitting Respiration 16 Pulse 81 Pulse Source Pulse Oximeter Pulse Oximetry (%) 97 Oxygen Delivery Method Room Air Intake Visit Reasons: RIGHT SHOULDER PAIN Intake Note: Patient comes in for initial visit was referred by Neurology. Reports pain 7/10. Allergies sulfamethoxazole [From Bactrim] Allergy (Severe, Verified 04/11/24 10:56) Hives trimethoprim [From Bactrim] Allergy (Severe, Verified 04/11/24 10:56) Hives Sulfa (Sulfonamide Antibiotics) Allergy (Unknown, Verified 04/11/24 10:56) unsure HPI Comments Details: Sandra is very pleasant 43 years old female who presents in my office with complains on cervicalgia pain on the right side of her neck. The pain is rather located in the lateral surface of the neck in the upper portion of the trapezius muscle right. She denies radiation of the pain to the upper extremity however she reports that pain radiates to her mouth to the upper jaw where her tooth was extracted few years ago. She also reports painful discomfort in bilateral wrists but she denies the pain aggravation in the wrist is coincide with pain aggravation in the neck. Her pain today 10/10. She reports that she can not sleep normally because of her pain can not do activities of daily living she can not take care of herself but she can not function normally. She is homemaker. Movements aggravate her pain heat application make her pain little bit better. She reported massage therapy did her pain improvement however she can not find massage therapist who would be accepting her insurance. Her pain in the neck is in terms of tissue damage as pinching cramping crushing tugging and tingling as well as cool sensation in the wrist. She had x-ray of the cervical spine results of which dictated as below. She never had physical therapy for her neck. She had coinciding trauma of the right pectoral muscle and she had physical therapy for this condition but never went for physical therapy for the neck. She reports past medical history of headaches dizziness and anxiety history of ovarian cysts past surgical history of appendicitis removal of appendix for C-sections and gallbladder surgery. She denies smoking cigarettes she denies drinking alcohol she takes 1 cup of coffee a day and she denies recreational drugs. [facility] Medical History Right anterior shoulder pain Surgical History H/O section Hx of cholecystectomy History of appendectomy Family History Maternal Aunt Substance use disorder Mental health disorder Paternal Uncle Mental health disorder Maternal Uncle Substance use disorder Mental health disorder Sister Substance use disorder Mental health disorder Brother Substance use disorder Mental health disorder Paternal Aunt Substance use disorder Mental health disorder Maternal Grandmother Mental health disorder Mother Mental health disorder Social History Housing: House Patient Tobacco Use Status: Former Tobacco user Years Smoked: quit 16 years ago e-Cigarette/Vaping Use: Never Used Second Hand Smoke Exposure: No service: No Current occupational status: unemployed Cognitive needs: No Hearing needs: No Vision needs: No Review of Systems Const All systems reviewed & are unremarkable except as noted in HPI and below Reports no additional complaints Card Reports no additional complaints Resp Reports no additional complaints GI Reports no additional complaints Musc Reports as per HPI Neuro Reports no additional complaints Physical Exam Const Orientation/consciousness: patient oriented x3 Eyes Pupils: Equal, round and reactive pupils present Neck Other: There is tenderness on palpation mostly in projection of the right trapezius muscle. Reflexes are symmetrical and bilateral brachioradialis and triceps Lhermitte test is negative Spurling test is negative bilaterally axial loading test is negative axial compression does not aggravate pain axial distraction does not alleviate pain pupils are equal and round and reactive to light and accommodation tongue in the midline. Neuro Other: No dystonia General: patient oriented x3, gait normal, tone normal, moves all extremities and no focal motor deficits Cranial nerves: Yes Facial sensation intact/muscles of mastication intact, Yes Equal, round and reactive pupils present, Yes Bilaterally intact EOM present, Yes Nystagmus not present, Yes Normal facial strength present and Yes Midline tongue present Cognition (Neuro): normal cognition Gait exam (Neuro): Normal gait present Motor exam (neuro): 5/5 motor strength present throughout and Normal motor muscle tone present throughout Deep tendon reflexes (DTR's): Right triceps reflex intensity grade: 2+, Left triceps reflex intensity grade: 2+, Rt Biceps (C5, C6): 2+, Left biceps reflex intensity grade: 2+, Right brachioradialis reflex intensity grade: 2+ and Left brachioradialis reflex intensity grade: 2+ Results Reviewed Results Reviewed: X-ray of the cervical spine two views 06/15/2023 Findings: Vertebral body heights are alignment is normal. The disc spaces are well-maintained. No acute fracture or spondylolisthesis is seen. The posterior elements are intact. There is no prevertebral soft tissue swelling. The dense and C7-T1 face are normal. Small left carotid atherosclerotic calcification is in question. Assessment & Plan Assessment & Plan (1) Cervicalgia: Code(s): M54.2 - Cervicalgia Category: Medical (2) Bilateral wrist pain: Code(s): M25.531 - Pain in right wrist; M25.532 - Pain in left wrist Category: Medical (3) Myofascial pain syndrome: Code(s): M79.18 - Myalgia, other site Category: Medical Plan The physical exam and x-ray are negative for pathology in the cervical spine. I do not see a presence of any facet arthropathy, I do not see any presence of the radiculopathy or nerve root compressions. She has bilateral wrist pain and most likely it is related to some pathology in the wrists themselves. She was tested for carpal tunnel EMG and it did not demonstrate carpal tunnel. I will refer her to Dr. Cabral our hand surgeon. I will refer her to physical therapy related to her cervicalgia. I truly believe that her pain is mostly related to the spastic muscles in the trapezius area. I offered her trigger point injections however patient has adamantly refused. She is interested in obtaining physical therapy. I will send her for physical therapy and if physical therapy will not help her pain to eliminate red flags I will schedule her for MRI of the cervical spine. I also recommended her to try applications of capsaicin patch in the area of painful shoulder. Next appointment is as needed when MRI is read. Orders: Orders PT Evaluation and Treatment Today M54.2 - Cervicalgia, M79.18 - Myalgia, other site Referrals Hand Surgery Referral M25.531 - Pain in right wrist, M25.532 - Pain in left wrist Patient Instructions: I here by testify that I spent 45 minutes in conversation with this patient as well as planning her care and organizing this note. Coding Level of Care Code New Pt Level 4 (68238) Diagnoses Cervicalgia M54.2 Bilateral wrist pain M25.531; M25.532 Myofascial pain syndrome M79.18
[2024-04-11 10:54] VITALS: BP 143/87; PULSE 81; RESP 16; O2SAT 97; BMI 22.2
== END 2024-04-11 10:50 | disposition home or self-care (01) ==
PROVIDERS: PCP Nurse Practitioner Family; Visit Provider Anesthesiology
DX: M54.2 Cervicalgia (principal); M25.531 Pain in right wrist; M25.532 Pain in left wrist; M79.18 Myalgia, other site
CPT/HCPCS: 99204

== ENCOUNTER → 2024-04-11 10:09 | Outpatient (BNVA) | payer OTHER, SELFPAY | PROVIDERS: PCP Nurse Practitioner Family; Visit Provider Anesthesiology | DX: M25.511 Pain in right shoulder (principal); M54.2 Cervicalgia; M25.531 Pain in right wrist; M25.532 Pain in left wrist; M79.18 Myalgia, other site | CPT/HCPCS: 99202 ==

== ENCOUNTER 2024-05-29 10:07 | Outpatient (AMB) | payer OTHER, SELFPAY ==
--- NOTE | 2024-05-29 10:30 | A.OFFVIS_ITS ---
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 Patient reports numbness and tingling. Reports locking on fingers, different finger each time. Has not done physical therapy. Denies injuries, falls. Patient reports she does not want injections today. EMG done 06/30/23. Allergies sulfamethoxazole [From Bactrim] Allergy (Severe, Verified 05/29/24 10:32) Hives trimethoprim [From Bactrim] Allergy (Severe, Verified 05/29/24 10:32) Hives Sulfa (Sulfonamide Antibiotics) Allergy (Unknown, Verified 05/29/24 10:32) unsure HPI HPI PHARMACY SALES REPRESENTATIVE James wrist pain: Details: Sandra is a 43 year old right hand dominant woman who presents with complaints of bilateral wrist pain. She complains of pain in her bilateral wrists, which began ~1 year ago. She denies any prior treatment for her wrists. She says her right wrist has been hurting for a longer period, and she compensated with this by using her left hand more frequently. She also complains of numbness to her entire hands, bilaterally. She says she feels tingling from her wrists into her palms & all her fingers. She had a NCS done last year, which was unremarkable. She says all her fingers get stuck in odd positions . she says this happens when gripping objects such as when filing her nails. She denies any locking or catching of her fingers. She says she had Shingles last year, which caused her to develop a burning pain in her hands & arms. She says her arms have improved but she conitnues to have a burning pain in her hands. She is afraid of needles and was not able to complete an EMG during her NCS. She is not interested in an injection today. [facility] Medical History Right anterior shoulder pain Surgical History H/O section Hx of cholecystectomy History of appendectomy Family History Maternal Aunt Substance use disorder Mental health disorder Paternal Uncle Mental health disorder Maternal Uncle Substance use disorder Mental health disorder Sister Substance use disorder Mental health disorder Brother Substance use disorder Mental health disorder Paternal Aunt Substance use disorder Mental health disorder Maternal Grandmother Mental health disorder Mother Mental health disorder Social History (Updated 05/29/24 @ 10:32 by DANDY Amos) Housing: House Patient Tobacco Use Status: Former Tobacco user Years Smoked: quit 16 years ago e-Cigarette/Vaping Use: Never Used Second Hand Smoke Exposure: No service: No Current occupational status: unemployed Current occupation: rt handed Cognitive needs: No Hearing needs: No Vision needs: No Review of Systems Const All systems reviewed & are unremarkable except as noted in HPI and below Physical Exam Const General: cooperative, healthy appearing and no acute distress Orientation/consciousness: patient oriented x3 HEENT Head: Yes normocephalic and Yes atraumatic Eyes EOM: EOMs intact bilaterally Resp Effort & Inspection: normal respiratory effort and able to speak in complete sentences Cardio Jugular venous distension: no JVD Skin General skin exam: turgor normal Rashes: no rashes Neuro General: patient oriented x3 Extrem Other: Evaluation of Bilateral Upper Extremity: The patient is alert, oriented, and in no acute distress Neuro: Median, Ulnar, Radial nerves motor and sensory intact, with some perceived tingling and sensation that is not quite normal to the tips of all digits bilaterally. No thenar or intrinsic wasting. Good finger cross and APB muscle belly firing bilaterally. Vascular: Cap refill brisk ROM: She can make a tight fist and extend all her digits No locking or catching Smooth and symmetrical wrist ROM Skin: No lacerations or abrasions. General: No Ecchymosis. No swelling or warmth. No Erythema or evidence of infection. Nerve Conduction Study: EMG portion not performed IMPRESSION: 1. This is a normal NCS. 2. There is no electrodiagnostic evidence for median neuropathy, or ulnar neuropathy, Rhonda Jackson MD, RANDY 06/30/23 Psych Appearance: grossly normal Affect: normal affect Attitude: cooperative Assessment & Plan Assessment & Plan (1) Bilateral wrist pain: Code(s): M25.531 - Pain in right wrist; M25.532 - Pain in left wrist Category: Medical (2) Bilateral hand numbness: Code(s): R20.0 - Anesthesia of skin Category: Medical Plan Assessment & Plan: 1. Bilateral wrist pain and hand pain Discomfort extending from the dorsal aspect of both forearms across into the fingertips of both hands Unable to localize focal area of discomfort No history of fall or injury Negative EMG nerve conduction studies in 07/19/2023 I educated her about this condition I think her overall function is good, and the etiology of her pain is unclear No intervention warranted at this time I discussed activity modification, she should be mindful to not overuse her hands with daily activities, frequently take breaks between heavy or repetitive activities, and maintain her ROM 2. Bilateral hand numbness Patient reports tingling to entire hand, including palm & all digits Etiology unclear, NCS from 06/30/23 was negative If her symptoms persist or worsen, she can follow up to discuss a repeat NCS. Of note, patient is afraid of needles and the EMG component was not performed. Of note, she reports she has an appointment next week to be seen for her C- spine. Follow up p.r.n. Scribed for Shameka Cabral MD by Prieto Olmstead, medical physics teacher, on [ ] at [ ], EST. Coding Level of Care Code New Pt Level 3 (54382) Diagnoses Bilateral wrist pain M25.531; M25.532 Bilateral hand numbness R20.0
== END 2024-05-29 11:12 | disposition home or self-care (01) ==
PROVIDERS: PCP Nurse Practitioner Family; Visit Provider Orthopaedic Surgery
DX: M25.531 Pain in right wrist (principal); M25.532 Pain in left wrist; R20.0 Anesthesia of skin
CPT/HCPCS: 99202

== ENCOUNTER → 2024-05-29 10:07 | Outpatient (BNVA) | payer OTHER, SELFPAY | PROVIDERS: PCP Nurse Practitioner Family; Visit Provider Orthopaedic Surgery | DX: M25.531 Pain in right wrist (principal); M25.532 Pain in left wrist; R20.0 Anesthesia of skin | CPT/HCPCS: 99202 ==

== ENCOUNTER 2024-08-21 10:05 | Outpatient (REF) | payer OTHER, SELFPAY ==
--- NOTE | ~2024-08-21 | MR_ITS ---
EXAMINATION: MR CERVICAL SPINE WITHOUT CONTRAST CLINICAL INFORMATION: Anesthesia of skin. COMPARISON: Cervical spine radiographs from 06/15/2023. TECHNIQUE: MRI of the cervical spine was obtained using routine sequences without contrast. FINDINGS: Straightening of the normal cervical lordosis. Moderate degenerative disc disease from C3 to C6. Mild disc desiccation at C2-C3 and C6-C7. Associated mixed Modic type discogenic endplate changes including minimal Modic type I discogenic edema at C5-C6. Mild marrow edema within the posterior elements of C7-T2 consistent with degenerative stress reaction. No additional suspicious marrow edema. The vertebral body heights are well-maintained.. The spinal cord is normal in appearance. No demonstrated spinal cord signal abnormalities. Limited evaluation of the soft tissues of the neck without demonstrated abnormalities. The flow voids of the major cervical vessels are maintained. Normal appearance of the cervicomedullary junction and visualized posterior fossa. SPINAL LEVELS: C2-C3: Normal annular contour. There is no uncovertebral joint arthropathy. There is mild bilateral facet joint arthropathy. There is no neural foraminal stenosis. There is no spinal canal stenosis. C3-C4: Minimal disc-osteophyte complex. There is mild right and no left uncovertebral joint arthropathy. There is no facet joint arthropathy. There is no neural foraminal stenosis. There is no spinal canal stenosis. C4-C5: Mild disc-osteophyte complex. There is mild bilateral uncovertebral joint arthropathy. There is mild bilateral facet joint arthropathy. There is mild left and no right neural foraminal stenosis. There is no spinal canal stenosis. C5-C6: Moderate disc-osteophyte complex. There is mild bilateral uncovertebral joint arthropathy. There is mild bilateral facet joint arthropathy. There is no neural foraminal stenosis. There is no spinal canal stenosis. C6-C7: Normal annular contour. There is no uncovertebral joint arthropathy. There is no facet joint arthropathy. There is no neural foraminal stenosis. There is no spinal canal stenosis. C7-T1: Normal annular contour. There is no uncovertebral joint arthropathy. There is no facet joint arthropathy. There is no neural foraminal stenosis. There is no spinal canal stenosis. 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 Most notably, there is mild left-sided neural foraminal stenosis at C4-C5. No additional overt spinal canal stenosis or nerve root compression. Electronically signed by: Stanislav Bashir DO 10/14/2024 02:03 PM [facility]
== END 2024-08-21 10:06 | disposition home or self-care (01) ==
LOC: HO.MRI 10:05
PROVIDERS: PCP Nurse Practitioner Family; Visit Provider Psychiatry & Neurology Neurology
DX: R20.0 Anesthesia of skin (principal); M54.2 Cervicalgia
CPT/HCPCS: 72141

== ENCOUNTER 2024-10-31 10:53 | Outpatient (AMB) | payer OTHER, SELFPAY ==
[2024-10-31 11:03] VITALS: BP 132/78; BMI 21.9
--- NOTE | 2024-10-31 11:03 | MHC.OFFVIS ---
Vital Signs 10/31/24 11:03 Height 4 ft 10 in Weight 105 lb BMI 21.9 BP 132/78 Blood Pressure Location Rt brachial Position Sitting Intake Visit Reasons: Follow up Intake Note: Patient presents for follow up Allergies sulfamethoxazole [From Bactrim] Allergy (Severe, Verified 10/31/24 11:04) Hives trimethoprim [From Bactrim] Allergy (Severe, Verified 10/31/24 11:04) Hives Sulfa (Sulfonamide Antibiotics) Allergy (Unknown, Verified 10/31/24 11:04) unsure Medication List - Last Reconciled 10/31/24 by Jeannine Robertson MD ibuprofen 600 mg PO Q8H PRN HPI Comments Details: 43y/o female comes for follow up of numbness and tingling in holly hands and sometimes elbows.The sensory symptoms are better but now she has neck stiffness and neck pain. MRI showed mild deg changes she did not like gabapentin so she stopped. C spine X ray was normal EMG holly UE was normal. History form last visit- - It started about 4-5 years ago when s he was painting her childrens bedroom . It lasted about 1 day and resolved. In 2019 she was sowing masks a lot and she started having similar symptoms for few weeks but when she stopped sewing the symptoms resolved.Last year she started having numbness and tingling and it has been persistent. SHe also reports wrist pain. she used to wake up in the middle of the night. she sleeps with a wrist brace now and does not wake up in the middle of the night with symptoms. He rC spine x ray was normal she also reports neck pain for over 15 years- but denies any shooting pain In Aug 2022 she roller skated with her son and when her son fell and pulled her arm and her neck pain worsened. she takes ibuprofen and it helps, The pain can radiate to the back of ehr head. she uses heating pad and TENS unit . she did not want to do PT because in the past her pain worsened. EMG of Ue was normal In 2018 when she was lifting weights she hurt herself in her right shoulder region and was told she has a muscle tear. PT did not help - since thens he has been having pain PFSH Medical History Right anterior shoulder pain Surgical History H/O section Hx of cholecystectomy History of appendectomy Family History Maternal Aunt Substance use disorder Mental health disorder Paternal Uncle Mental health disorder Maternal Uncle Substance use disorder Mental health disorder Sister Substance use disorder Mental health disorder Brother Substance use disorder Mental health disorder Paternal Aunt Substance use disorder Mental health disorder Maternal Grandmother Mental health disorder Mother Mental health disorder Social History Housing: House Patient Tobacco Use Status: Former Tobacco user Years Smoked: quit 16 years ago e-Cigarette/Vaping Use: Never Used Second Hand Smoke Exposure: No service: No Current occupational status: unemployed Current occupation: rt handed Cognitive needs: No Hearing needs: No Vision needs: No Physical Exam Vital Signs: Last Vital Signs BP 132/78 10/31/24 11:03 BMI result Body Mass Index 21.9 Const Orientation/consciousness: patient oriented x3 Eyes Pupils: Equal, round and reactive pupils present Neck Other: neck tightness - right splenius levator Neuro Other: Tenderness in right levator trapezius , splenius, pec major , lattismus , scapular region No dystonia General: patient oriented x3, gait normal, tone normal, moves all extremities and no focal motor deficits Cranial nerves: Yes Facial sensation intact/muscles of mastication intact, Yes Equal, round and reactive pupils present, Yes Bilaterally intact EOM present, Yes Nystagmus not present, Yes Normal facial strength present and Yes Midline tongue present Cognition (Neuro): normal cognition Gait exam (Neuro): Normal gait present Motor exam (neuro): 5/5 motor strength present throughout and Normal motor muscle tone present throughout Coordination: [id number] test normal Results Reviewed Results Reviewed: MRI C spine-2023 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 Most notably, there is mild left-sided neural foraminal stenosis at C4-C5. No additional overt spinal canal stenosis or nerve root compression. Assessment & Plan Assessment & Plan (1) Cervicalgia: Code(s): M54.2 - Cervicalgia Category: Medical Plan reviewed MRI She does not want to start any muscle relaxants she responded to massage therapy in the past. Declines botox Orders: Referrals Massage Therapy Referral M54.2 - Cervicalgia Medications: New cyclobenzaprine 5 mg PO BEDTIME 30 tabs 0RF Coding Level of Care Code Est Pt Level 4 (60390) Complex EM visit Add On G2211 Diagnoses Cervicalgia M54.2
== END 2024-10-31 11:47 | disposition home or self-care (01) ==
PROVIDERS: PCP Nurse Practitioner Family; Visit Provider Psychiatry & Neurology Neurology
DX: M54.2 Cervicalgia (principal)
CPT/HCPCS: 99214; G2211

== ENCOUNTER → 2024-10-31 10:53 | Outpatient (BNVA) | payer OTHER, SELFPAY | PROVIDERS: PCP Nurse Practitioner Family; Visit Provider Psychiatry & Neurology Neurology | DX: M54.2 Cervicalgia (principal) | CPT/HCPCS: 99212 ==

== ENCOUNTER 2025-09-03 14:50 | Outpatient (AMB) | payer OTHER, SELFPAY ==
--- OUTSIDE RECORDS SUMMARY | 2025-09-01 09:33 | XMS_ITS | Encounter Summary ---
Author Organization [facility] Address [address] [place] [address] Care Team Providers Care Checker Dump Grounds Name Role Phone Charanjit Nava NP Primary Care Provider Reason for Referral * Imaging (Routine) - Authorized Specialty Diagnoses / Procedures Referred By Malia roth Referred To Contact Radiology Diagnoses Encounter for screening mammogram for malignant neoplasm of breast Procedures MG Mammo Digital Screening w Sterling Meléndez MD [address] [address] Phone: tel: fax: [facility] Referral ID Status Reason Start Date Expiration Date V isits Requested Visits Authorized [id number] Authorized 04/03/2025 04/03/2026 1 1 Reason for Visit * Imaging (Routine) - Authorized Specialty Diagnoses / Procedures Referred By Malia roth Referred To Contact Radiology Diagnoses Encounter for screening mammogram for malignant neoplasm of breast Procedures MG Mammo Digital Screening w Sterling Meléndez MD [address] [address] Phone: tel: fax: [facility] Referral ID Status Reason Start Date Expiration Date V isits Requested Visits Authorized [id number] Authorized 04/03/2025 04/03/2026 1 1 Encounter Details Date Type Department Care Team (Latest Contact Info) Description 09/01/2025 9:33 AM EST - 09/01/2025 11:59 PM EST [facility] [address] [place] [id number] Encounter for screening mammogram for malignant neoplasm of breast Discharge Disposition: Home or Self Care Social History Tobacco Use Types Packs/Day Years Used Date Smoking Tobacco: Never Assessed Comments No Sex and Gender Information Value Date Recorded Sex Assigned at Female 04/11/2025 1:51 PM EDT Legal Sex Female 2:54 AM EST Gender Identity Female 04/11/2025 1:51 PM EDT Sexual Orientation Straight 04/11/2025 1: 51 PM EDT documented as of this encounter Last Filed Vital Signs Vital Sign Reading Time Taken Comments Blood Pressure - - Pulse - - Temperature - - Respiratory Rate - - Oxygen Saturation - - Inhaled Oxygen Concentration - - Weight 49.4 kg (109 lb) 09/01/2025 9:47 AM EST Height 149.9 cm (4' 11 ) 09/01/2025 9:47 AM EST Body Mass Index 22.02 09/01/2025 9:47 AM EST documented in this encounter Discharge Disposition Disposition Code Departure Means Destination Home or Self Care documented in this encounter Plan of Treatment Not on file documented as of this encounter Procedures Procedure Name Priority Date/Time Associated Diagnosis Comments MG MAMMO DIGITAL SCREENING W JUSTIN BILAT Routine 09/01/2025 9:58 AM EST Encounter for screening mammogram for malignant neoplasm of breast documented in this encounter Results * MG Mammo Digital Screening w Justin bilat (09/01/2025 9:58 AM EST) Anatomical Region Laterality Modality Breast Bilateral Mammography 09/01/2025 10:5 7 AM EST Impressions 09/01/2025 10:59 AM EST No evidence of breast malignancy. BI-RADS CATEGORY: 1 - NEGATIVE RECOMMENDATION: Screening bilateral mammogram is recommended in 1 year. Mammo Location: [facility], [address] [place] [address], [id number], . -------- FINAL REPORT -------- Dictated By: Tammie Valverde Dictated Date: 09/01/2025 10:57 ET Assigned Physician: Tammie Valverde Reviewed and Electronically Signed By: Tammie Valverde Signed Date: 09/01/2025 10:59 ET Workstation ID: [id number] Transcribed By: Self Edit Transcribed Date: 09/01/2025 10:57 ET Narrative 09/01/2025 10:59 AM EST CLINICAL: 44 years old, Female, baseline exam. COMPARISON: No prior studies TECHNIQUE: Bilateral MLO and CC views were obtained digitally with 3-D mammogram (digital breast tomosynthesis). Computer-aided detection was utilized in evaluation of this exam (CAD). FINDINGS: There is no evidence of suspicious mass or architectural distortion. No worrisome calcifications are evident. BREAST DENSITY: B - There are scattered areas of fibroglandular density. Procedure Note Tammie Valverde MD - 09/01/2025 CLINICAL: 44 years old, Female, baseline exam. COMPARISON: No prior studies TECHNIQUE: Bilateral MLO and CC views were obtained digitally with 3-Dmammogram (digital breast tomosynthesis). Computer-aided detection wasutilized in evaluation of this exam (CAD). FINDINGS: There is no evidence of suspicious mass or architectural distortion. Noworrisome calcifications are evident. BREAST DENSITY: B - There are scattered areas of fibroglandular density. IMPRESSION: No evidence of breast malignancy. BI-RADS CATEGORY: 1 - NEGATIVE RECOMMENDATION: Screening bilateral mammogram is recommended in 1 year. Mammo Location: [facility], [address] [place] [address], [id number], . -------- FINAL REPORT -------- Dictated By: Tammie Valverde Dictated Date: 09/01/2025 10:57 ET Assigned Physician: Tammie Valverde Reviewed and Electronically Signed By: Tammie Valverde Signed Date: 09/01/2025 10:59 ET Workstation ID: [id number] Transcribed By: Self Edit Transcribed Date: 09/01/2025 10:57 ET Sterling Vogt MD IMG BI PROCEDURES Final Result documented in this encounter Visit Diagnoses Diagnosis Encounter for screening mammogram for malignant neoplasm of breast documented in this encounter Care Teams Checker Dump Grounds Relationship Specialty Start Date End Date Charanjit Nava NP [address] [place], [place] PCP - General Family Medicine 04/11/25 documented as of this encounter
[2025-09-03 15:00] VITALS: BP 114/82; PULSE 72; RESP 14; TEMP 37; O2SAT 98; BMI 22.8
--- NOTE | 2025-09-03 15:00 | A.OFFPC_ITS ---
Vital Signs 09/03/25 15:00 Height 4 ft 10 in Weight 109 lb BMI 22.8 BP 114/82 Blood Pressure Location Lt brachial Position Sitting Respiration 14 Pulse 72 Pulse Source Pulse Oximeter Temp 98.6 F Temp Source Oral Pulse Oximetry (%) 98 Oxygen Delivery Method Room Air Intake Visit Reasons: Annual PE Infusion Therapy Nurse Required: No Accompanied by: Self / Same As Patient Allergies sulfamethoxazole (From Bactrim) Allergy (Severe, Verified 09/03/25 15:40) Hives trimethoprim (From Bactrim) Allergy (Severe, Verified 09/03/25 15:40) Hives Sulfa (Sulfonamide Antibiotics) Allergy (Unknown, Verified 09/03/25 15:40) unsure Medication List - Last Reconciled 09/03/25 by LUISITO Ellison ibuprofen 600 mg PO Q8H PRN Tobacco use date assessed: 09/03/25 Dental Screening Dental Screen Date: 11/06/23 HPI Annual PE HPI Details History of Present Illness The patient is a 44-year-old female presenting for a physical exam. She reports feeling quite well overall, though she was recently sick. Her mammograms are up to date, and she has a gynecology provider. Hx of cervical neck pain, want her in with massage therapy, many referrals already placed Health Maintenance The patient presented for a physical exam. Her mammograms are noted to be up to date and she has PIE CHEF care established. Social History Review of Systems - General: Reports feeling quite well ov erall. - Constitutional: Denies fevers and chil ls. - Gastrointestinal: Denies blood in stoo l, constipation, diarrhea, nausea, and vomiting. - Psychiatric: Denies suicidal or homici carrillo ideation. Physical Exam General: Cooperative, healthy appearing, comfortable, no acute distress and well developed Orientation: Patient oriented x3 Limitations: No limitations Head: Normal to inspection Ears: Right ear effusion noted, hearing grossly normal bilaterally Nose: Normal external nose present Face and sinus: Normal facial exam Eyes: Appearance normal, both eyes and all related structures Neck: Normal visual inspection and Yes full ROM Respiratory: Normal respiratory effort and able to speak in complete sentences. Clear to auscultation bilaterally Cardiovascular: Regular rate and rhythm. Normal S1 and S2 GI: Normal to inspection. Soft to palpation and nontender Skin: No rashes or lesions noted Neuro: Patient oriented x3 Extremities: Normal to inspection Results Plan 1. Right Ear Effusion The patient was found to have a right ear effusion on exam, which is not yet a full infection. An antibiotic will be prescribed, but the patient was instructed to use it only if she experiences severe pain in the right ear or her symptoms worsen. Discussion Notes I discussed the finding of a right ear effusion, explaining that it is not quite an infection at this time. I will send a prescription for an antibiotic and have instructed the patient to only fill and use it if she develops severe pain in that ear or if her symptoms worsen. Patient Instructions - We have sent a prescription for an ant ibiotic to your pharmacy for the fluid in your right ear. - Only start taking the antibiotic if yo u begin to have bad pain in your right ear or if your other symptoms get worse. [facility] Medical History Right anterior shoulder pain Surgical History H/O section Hx of cholecystectomy History of appendectomy Family History Maternal Aunt Substance use disorder Mental health disorder Paternal Uncle Mental health disorder Maternal Uncle Substance use disorder Mental health disorder Sister Substance use disorder Mental health disorder Brother Substance use disorder Mental health disorder Paternal Aunt Substance use disorder Mental health disorder Maternal Grandmother Mental health disorder Mother Mental health disorder Social History Housing: House Patient Tobacco Use Status: Former Tobacco user Years Smoked: quit 16 years ago e-Cigarette/Vaping Use: Never Used Second Hand Smoke Exposure: No service: No Current occupational status: unemployed Current occupation: rt handed Cognitive needs: No Hearing needs: No Vision needs: No Questionnaire PHQ-9 Over the last 2 weeks, how often have you been bothered by any of the following problems? 1. Little interest or pleasure in doing things: not at all 2. Feeling down, depressed, or hopeless: not at all 3. Trouble falling or staying asleep, or sleeping too much: several days 4. Feeling tired or having little energy: not at all 5. Poor appetite or overeating: not at all 6. Feeling bad about yourself - or that you are a failure or have let yourself or your family down: not at all 7. Trouble concentrating on things, such as reading the newspaper or watching television: several days 8. Moving or speaking so slowly that other people could have noticed. Or the opposite - being so fidgety or restless that you have been moving around a lot more than usual: more than half the days 9. Thoughts that you would be better off or of hurting yourself in some way: not at all Total score: 4 Depression Screening Interpretation: Negative Depression Screening Done: Yes 89756 - PHQ-9 Billing: Patient declined-do not bill Source: Developed by Drs. Ajay Bran, Josette Nayak, Umberto Martell and colleagues, with an educational iman from [employer]. Thrive Questionnaire Date Thrive assessed: 11/06/24 I am a: Patient What is your living situation today?: I have a steady place to live Within the past 12 months, did the food you bought not last and you didn't have the money to get more?: Never true Within the past 12 months, did you worry whether your food would run out before you got money to buy more?: Never true Do you have trouble paying for medicines?: No Do you have trouble getting transportation to medical appointments?: No Do you have trouble paying your heating and electricity bill?: No Do you have trouble with day-to-day activities such as bathing, preparing meals, shopping, managing finances, etc.?: No Are you currently unemployed and looking for a job?: No THRIVE Score: 0 FERNANDO-7 AMB Questionnaire FERNANDO-7 Date FERNANDO - 7 assessed: 09/03/25 Feeling nervous, anxious, or on edge: 0 = Not at all Not being able to stop or control worryin = Not at all Worrying too much about different things: 0 = Not at all Trouble relaxin = Not at all Being so restless that it is hard to sit still: 0 = Not at all Becoming easily annoyed or irritable: 0 = Not at all Feeling afraid as if something awful might happen: 0 = Not at all Total FERNANDO-7 score (0-4 normal; 5-9 mild; 10-14 moderate; 15-21 severe): 0 Source: Developed by Drs. Ajay Bran, Josette Nayak, Umberto Martell and colleagues, with an educational iman from [employer]. FERNANDO-7 Assessment Billing FERNANDO-7 Assessment Tool: FERNANDO-7 Assessment 33116 Physical exam (Primary Care) Vital Signs: Last Vital Signs Temp 98.6 F 09/03/25 15:00 Pulse 72 09/03/25 15:00 Resp 14 09/03/25 15:00 BP 114/82 09/03/25 15:00 Pulse Ox 98 09/03/25 15:00 Oxygen Delivery Method Room Air 09/03/25 15:00 BMI result Body Mass Index 22.8 Tobacco/Smoking Status: Tobacco use Status Tobacco use date assessed 09/03/25 09/03/25 15:05 Patient Tobacco Use Status Former Tobacco user 09/03/25 15:05 e-Cigarette/Vaping Use Never Used 09/03/25 15:05 PHQ-9: PHQ-9 Score PHQ-9: Total score 4 09/03/25 15:40 Depression Screening Interpretation: Negative Thrive Assessment: Date of Thrive Assessment Date Thrive assessed 11/06/24 09/03/25 15:05 Coding Level of Care Code Est Pt Prev Care 40-64y(58950) Diagnoses Physical exam Z00.00 Vitamin D deficiency E55.9 Cervical pain (neck) M54.2 Additional Codes FERNANDO-7 Assessment Billing - FERNANDO-7 Assessment Tool: FERNANDO-7 Assessment 58077 ([id number]) Assessment & Plan Assessment & Plan (1) Physical exam: Code(s): Z00.00 - Encounter for general adult medical examination without abnormal findings Category: Medical (2) Vitamin D deficiency: Code(s): E55.9 - Vitamin D deficiency, unspecified Category: Medical (3) Cervical pain (neck): Code(s): M54.2 - Cervicalgia Category: Medical (4) Cervicalgia: Code(s): M54.2 - Cervicalgia Category: Medical Plan . Orders: Orders Complete Blood Count Auto Diff Today Z00.00 - Encounter for general adult medical examination without abnormal findings TSH reflex Free T4 Today Z00.00 - Encounter for general adult medical examination without abnormal findings UA CC w/rflx Micro + Cult Today Z00.00 - Encounter for general adult medical examination without abnormal findings Comprehensive [place]. Panel Fast Today Z00.00 - Encounter for general adult medical examination without abnormal findings Lipid Panel Today Z00.00 - Encounter for general adult medical examination without abnormal findings Vitamin D 25-OH Total Today E55.9 - Vitamin D deficiency, unspecified Referrals Massage Therapy Referral M54.2 - Cervicalgia Medications: New azithromycin For 250 mg dose pack: take 500 mg today (day 1), then 250 mg for 4 days (days 2-5) PO 6 tabs 0RF
--- OUTSIDE RECORDS SUMMARY | 2025-09-03 17:58 | XMS_ITS | Encounter Summary ---
Author Organization [facility] Address [address] [place] [address] Care Team Providers Care Biology Specialist Name Role Phone GilmaarsenioCharanjit chinchilla Max KLEIN Primary Care Provider Encounter Details Date Type Department Care Team (Latest Contact Info) Description 04/04/2025 Lab Requisition [facility] - Main Lab [address] [facility] [place] [address] Sterling Vogt MD [address] [address] Encounter for gynecological examination (general) (routine) without abnormal findings Social History Tobacco Use Types Packs/Day Years Used Date Smoking Tobacco: Never Assessed Comments Unknown Sex and Gender Information Value Date Recorded Sex Assigned at Female 04/11/2025 1:51 PM EDT Legal Sex Female 2:54 AM EST Gender Identity Female 04/11/2025 1:51 PM EDT Sexual Orientation Straight 04/11/2025 1: 51 PM EDT documented as of this encounter Plan of Treatment Not on file documented as of this encounter Procedures Procedure Name Priority Date/Time Associated Diagnosis Comments PAP SMEAR Routine 04/03/2025 12:00 AM EDT Encounter for gynecological examination (general) (routine) without abnormal findings documented in this encounter Results * Pap smear (04/03/2025 12:00 AM EDT) Interpretation Negative for intraepithelial lesion or malignancy 04/09/2025 11:14 AM EDT [facility] ([facility] [place] General Categorization Negative 04/09/2025 11:14 AM EDT [facility] LMP 03/19/2025 04/09/2025 11:14 AM EDT [facility] Specimen Adequacy Satisfactory for evaluation, endocervical/beasley sformation zone component absent 04/09/2025 11:14 AM [facility] Pap Methodology Liquid Based Pap Test 04/09/2025 11:14 AM EDT [facility] Disclaimer The Pap test is a screening test which carries an inherent false negative rate. These test results should be correlated with the patient's clinical findings and history. This Pap test was processed using an automated screening system. Technical cytopathology services provided by [facility], at [address] [place] [id number] (CLIA # [id number]/Lewis Nino MD, Accounting Representative.) 04/09/2025 11:14 AM [facility] Console Pap Interpretation Reported 04/09/2025 11:14 AM [facility] Brushing/Spatula Cervix uteri structure / Unknown 04/03/2025 04/04/2025 7:08 AM EDT us Sterling Vogt MD LAB CYTOLOGY ORDERABLES Final Result [facility] [address] [place] [address], documented in this encounter Visit Diagnoses Diagnosis Encounter for gynecological examination (general) (routine) without abnormal findings documented in this encounter Care Teams Biology Specialist Relationship Specialty Start Date End Date Charanjit Nava NP [address] [place], [place] PCP - General Family Medicine 04/11/25 documented as of this encounter
--- OUTSIDE RECORDS SUMMARY | 2025-09-03 17:58 | XMS_ITS | Clinical Summary ---
Author Organization 299 [facility] Address [address] [place] [address] Phone Care Team Providers Care Compilation Clerk Name Role Phone Charanjit Nava NP Primary Care Provider Encounters Date Type Department Care Team Description 09/01/2025 9:33 AM EST - 09/01/2025 11:59 PM EST Hospital [facility]counter [facility] [address] [place] [address] Encounter for screening mammogram for malignant neoplasm of breast Discharge Disposition: Home or Self Care from Last 3 Months Family History Medical History Relation Name Comments Breast cancer Father's Sister Relation Name Status Comments Father's Sister Alive Social History Tobacco Use Types Packs/Day Years Used Date Smoking Tobacco: Never Assessed Comments No Sex and Gender Information Value Date Recorded Sex Assigned at Female 04/11/2025 1:51 PM EDT Legal Sex Female 2:54 AM EST Gender Identity Female 04/11/2025 1:51 PM EDT Sexual Orientation Straight 04/11/2025 1: 51 PM EDT Obstetrics History Para Term AB IAB SAB Ectopic Multiple Livin g Live Births 4 Last Filed Vital Signs Vital Sign Reading Time Taken Comments Blood Pressure - - Pulse - - Temperature - - Respiratory Rate - - Oxygen Saturation - - Inhaled Oxygen Concentration - - Weight 49.4 kg (109 lb) 09/01/2025 9:47 AM EST Height 149.9 cm (4' 11 ) 09/01/2025 9:47 AM EST Body Mass Index 22.02 09/01/2025 9:47 AM EST Plan of Treatment Health Maintenance Due Date Last Done Comments Hepatitis B Vaccines (1 of 3 - 19+ 3-dose series) 2000 HPV Vaccines (1 - 3-dose SCD M series) 2008 DTaP,Tdap,and Td Vaccines (2 - Td or Tdap) 07/16/2022 07/16/2012 Depression Screening 10/30/2024 HIV Screening 04/04/2025 Hepatitis C Screening 04/04/2025 Social Influencers of Health Screening 04/04/2025 COVID-19 Vaccine (3 - 2024-2 6 season) 2025 01/10/2022, 12/13/2021 Influenza Vaccine (#1) 2025 08/07/2021 Breast Cancer Screening 09/01/2027 09/01/2025 Cervical Cancer Screening: P ap Smear 04/03/2028 04/03/2025 RSV Immunization Adult Patients (1 - 1-dose 75+ series) 2056 HIB Vaccines Aged Out No longer eligi ble based on patient's age to complete this topic Hepatitis A Vaccines Aged Out No long er eligible based on patient's age to complete this topic IPV Vaccines Aged Out No longer eligi ble based on patient's age to complete this topic MMR Vaccines Aged Out No longer eligi ble based on patient's age to complete this topic Meningococcal ACWY Vaccine Aged Out N o longer eligible based on patient's age to complete this topic Meningococcal B Vaccine Aged Out No l onger eligible based on patient's age to complete this topic Pneumococcal Vaccine: Pediatrics (0 to 5 Years) and At-Risk Patients (6 to 49 Years) Aged Out No longer eligible b ased on patient's age to complete this topic RSV Immunization Patients Under 20 months Aged Out No longer eligible b ased on patient's age to complete this topic Varicella Vaccines Aged Out No longer eligible based on patient's age to complete this topic Procedures Procedure Name Priority Date/Time Associated Diagnosis Comments MG MAMMO DIGITAL SCREENING W JUSTIN BILAT Routine 09/01/2025 9:58 AM EST Encounter for screening mammogram for malignant neoplasm of breast PAP SMEAR Routine 04/03/2025 12:00 AM EDT Encounter for gynecological examination (general) (routine) without abnormal findings from Last 3 Months or Most Recently Relevant to Health Maintenance Results * MG Mammo Digital Screening w Justin bilat (09/01/2025 9:58 AM EST) Anatomical Region Laterality Modality Breast Bilateral Mammography 09/01/2025 10:5 7 AM EST Impressions 09/01/2025 10:59 AM EST No evidence of breast malignancy. BI-RADS CATEGORY: 1 - NEGATIVE RECOMMENDATION: Screening bilateral mammogram is recommended in 1 year. Mammo Location: [facility], [address] [place] [address], [id number], . -------- FINAL REPORT -------- Dictated By: Tammie Valverde Dictated Date: 09/01/2025 10:57 ET Assigned Physician: Tammie Valverde Reviewed and Electronically Signed By: Tammie Valverde Signed Date: 09/01/2025 10:59 ET Workstation ID: [id number] Transcribed By: Self Edit Transcribed Date: 09/01/2025 [...] year. Mammo Location: [facility], [address] [place] [address], [address], . -------- FINAL REPORT -------- Dictated By: Tammie Valverde Dictated Date: 09/01/2025 10:57 ET Assigned Physician: Tammie Valverde Reviewed and Electronically Signed By: Tammie Valverde Signed Date: 09/01/2025 10:59 ET Workstation ID: [id number] Transcribed By: Self Edit Transcribed Date: 09/01/2025 10:57 ET Sterling Vogt MD IMG BI PROCEDURES Final Result * Pap smear (04/03/2025 12:00 AM EDT) Interpretation Negative for intraepithelial lesion or malignancy 04/09/2025 11:14 AM EDT [facility] General Categorization Negative [facility]/19/2025 04/09/2025 11:14 AM [facility] Specimen Adequacy Satisfactory for evaluation, endocervical/beasley sformation zone component absent 04/09/2025 [facility] Pap Methodology Liquid Based Pap Test 04/09/2025 11:14 AM [facility] Disclaimer The Pap test is a screening test which carries an inherent false negative rate. These test results should be correlated with the patient's clinical findings and history. This Pap test was processed using an automated screening system. Technical cytopathology services provided by [facility], at [address] [place] [address] (CLIA # [id number]/Lewis Nino MD, Front Office Coordinator.) 04/09/2025 11:14 AM [facility] Console Pap Interpretation Reported 04/09/2025 11:14 AM [facility] Brushing/Spatula Cervix uteri structure / Unknown 04/03/2025 04/04/2025 7:08 AM EDT us Sterling Vogt MD LAB CYTOLOGY ORDERABLES Final Result [facility] [address] [place] [address], [place] [phone] from Last 3 Months or Most Recently Relevant to Health Maintenance Insurance [facility] Contact [employer] Care Teams Compilation Clerk Relationship Specialty Start Date End Date Charanjit Nava NP [address] [place], [place] PCP - General Family Medicine 04/11/25
== END 2025-09-03 15:52 | disposition home or self-care (01) ==
LOC: HO.HMCC 14:50
PROVIDERS: PCP Nurse Practitioner Family; Visit Provider Nurse Practitioner Family
DX: Z00.00 Encounter for general adult medical examination without abnormal findings (principal); E55.9 Vitamin D deficiency, unspecified; M54.2 Cervicalgia

== ENCOUNTER → 2025-09-03 14:50 | Outpatient (BNVA) | payer OTHER, SELFPAY | PROVIDERS: PCP Nurse Practitioner Family; Visit Provider Nurse Practitioner Family | DX: Z00.00 Encounter for general adult medical examination without abnormal findings (principal); E55.9 Vitamin D deficiency, unspecified; M54.2 Cervicalgia | CPT/HCPCS: 96127; 99396 ==